=== PATIENT | male | born 2000 ===

== ENCOUNTER 2021-04-28 16:47 | Emergency (ER) | payer BC ==
[~2021-04-28] VITALS: Ht 185.4 cm; Wt 104.3 kg
[2021-04-28] MEDS ORDERED: KETAMINE 50mg/ML 10ml Vial (500mg/10ml) IV ONE (20:15)
[2021-04-28 21:00] VITALS: BP 132/81
== END 2021-04-28 23:59 | disposition home or self-care (01) ==
LOC: ER 16:47
DX: S43.005A Unspecified dislocation of left shoulder joint, initial encounter (principal); X58.XXXA Exposure to other specified factors, initial encounter; Y93.89 Activity, other specified; Y92.89 Other specified places as the place of occurrence of the external cause; Y99.8 Other external cause status
CPT/HCPCS: 23650; 73030; 99152; 99153